=== PATIENT | male | born 1985 ===

== ENCOUNTER → 2016-12-22 | Outpatient (CLI) | payer MEDICAID ==
--- NOTE | 2016-12-22 10:18 | NOWCEV ---
[facility] EVALUATION AND LETTER OF JUSTIFICATION Patient Name: ABRAHAN OSBORNE JR Physician: DO Yin Blandon Date: 12/22/16 Therapist: Dilma Cavazos PT,MSPT Date of : 1985 MR#: [id number] Contact: Subscriber: ABRAHAN OSBORNE JR Primary Ins: [employer] Subscriber #: [id number] EVALUATION FINDINGS Medical history - Abrahan is a 31y/o male who was dx with multiple sclerosis (MS) in 2006. He has been wheelchair bound for about 9 years, using a standard MWC. His current wheelchair is not meeint his needs for mobility both within his home and in the community. Abrahan was referred to this clinic by his doctor to have recommendation made for the most appropriate PWC and MWC to meet his needs in both his home and in the community. Functional Mobility - Abrahan cannot ambulate, even with an AD. He has been wheel chair bound for the past 9 years. He utilizes his chair for all community mobility and some distances within his home. In his home, he frequently crawls to access different areas, and bumps in a seated position on the stairs utilizing his UEs for mobility. He is able to stand with B UE support on a counter for several seconds prior to LOB and having to sit. He reports he very sporadically has the strength to walk with support of furniture in his home, but this only occurs every several months. Abrahan performs squat pivot transfers to/from his MWC independently with significant use of his UEs to complete transition. He requires assistance to manage his LEs with sit to supine transitions and utilizes an UE momentum strategy to roll L and R. He uses his UEs to move his LEs for all mobility. Head/Trunk control - Abrahan has poor trunk control. When sitting unsupported he utilizes an anterior prop position to control his balance. He is unable to sit without UE support and cannot correct a LOB without his UEs. Motor involvement - Abrahan's LEs are more greatly impacted by his MS that his UEs. Abrahan experiences significant fatigueable weakness causing his strength to fluctuates with levels of fatigues and exertion. MMT on his date is as follows : DF, eversion, inversion B: 0/5, knee extension B: 2+/5, hip flexion B: 2-/5, hip abduction B: 1/5, shoulder flexion and abduction: 4-/5, elbow flexion B: 4+/ 5, elbow extension L: 4-/5, R 4/5. Abrahan has extensor tone in his LEs. He demonstrates 1+ to 2 on the modified Norma scale in his quadriceps and 1+ in his gluteals. He has multi-beat clonus at B ankles. He reports that his legs will intermittently move into an extensor pattern which he is unable to control. He has tightness in B hamstrings. Posture - Abrahan sits with a significant posterior pelvic tilt. His L shoulder is elevated and his R iliac crest is higher than his L. He has a L scoliotic convexity. In his current standard MWC, Abrahan sit with his trunk leaning to the L with his L UE supporting his trunk on the arm rest. Skin/Sensation - Abrahan has a history of skin breakdown on B ischial tuberosities (ITs). He currently has stage 2 pressure ulcers on B ITs, despite frequent weight shifting for pressure relief. Abrahan is incontinent of bladder. Endurance - Abrahan's endurance is significantly limited by his MS. He reports that he spends the majority of his day on the couch, as he fatigues with all activity if not using his wheelchair. His fluctuating level of fatigue causes him to require varying levels of assistance to perform ADLs. His endurance significantly limits his ability to access the community, as he is unable to self propel his current standard MWC over uneven surfaces or community distances without fatigue and requiring assistance. ADLs - Abrahan requires assistance from his mother to complete activities such as tying his shoes, and he utilizes assistance as needed for bathing and dressing. He currently relies on his mother for meal prep and light housework as the home he currently lives in is not wheelchair accessible. Cognitive/Social - Abrahan is fully cognizant. Abrahan lives with his mother who is his primary caregiver in a multi-level home with 2 NICK. Abrahan is currently on a waiting list for handicap accessible housing. Once he moves into accessible housing, Abrahan will be able to easily utilize a MWC within the home and perform MRADLs with greater independence from a wheelchair level. To access the community, Abrahan has been utilizing a standard weight MWC. He has difficulty self propelling up hills/ramps and negotiating on unlevel surfaces. He reports his arms go numb when self propelling longer distances and he has been picked up by EMS on several occasions when he fatigued prior to getting to his destination, as the [email or web address] public transit bus is 2[place]3miles from his home. He also relies on his mother to drive him into the community, where his MWC is placed in the car. He self propels once at the destination but requires intermittent assistance for unlevel surfaces due to the weight and poor fit of his chair. Current wheelchair - Abrahan currently utilizes a standard MWC for some household and all community mobility. The chair was purchased at a [employer] sale and is too wide which makes is difficult for Abrahan to reach his wheels. The seating system does not support his posture or assist with his poor trunk control causing him to lean strongly to the L. Additionally, Abrahan's current seat does not provide adequate pressure relief, and he has active pressure ulcers. The weight of Abrahan's current chair is also an concern, as he cannot self propel up hills/ramps or any distances without fatiguing and exacerbating his MS symptoms. MEDICAL and FUNCTIONAL NEED/OBJECTIVES * To procure a custom seating system to provide Abrahan with postural support and control to decrease skin breakdown, promote skin healing and to maximize his postural endurance /function in the home and community. * To procure a PWC to provide Abrahan with safe and consistent access to the community without exacerbating his MS. * To procure an ultra light weight MWC to provide Abrahan with access to his home and shorter distances in the community. EQUIPMENT RECOMMENDATIONS AND JUSTIFICATIONS The following recommendations are believed to be the most cost effective way to meet the patients medical and functional needs. PWC * Group 3 power base: Needed to provide bArahan with safe and consistent access to the community without putting him at risk for exacerbating his MS or becoming stranded. This is necessary because Abrahan cannot ambulate, even with an AD. He cannot propel even a light weight MWC the distances required to access public transit and the grocery store. In the past attempting to self propel these distances has caused exacerbation of MS symptoms where EMS was called to assist patient back home. A PWC will allow Abrahan to independently participate in his community without placing him at risk for medical complications/exacerbation of his MS. Abrahan is able to safely and independently perform squat pivot transfer to/from his wheelchair. * Power tilt-in- space: Needed to allow Abrahan to perform regular pressure relief in order to promote healing of his ischial pressure ulcers. This is necessary has Abrahan's ability to weight shift and pressure relief fluctuates with his fatigue level. Additionally, the tilt will allow Abrahan to rest in his chair and conserve energy in order to increase his community participation without exacerbating his MS, or having to return home to lay down due to fatigue. * Skin protection positioning cushion: Needed to provide Abrahan with appropriate pressure relief to promote healing of his current pressure sores and to promote skin health. Also required to provide a stable base for Abrahan's pelvis in order to promote upright posture, balance, and trunk control to optimize Abrahan's ability to perform functional tasks from a wheelchair level. * Deep contour posterior-lateral positioning backrest: Needed to maximize Abrahan' s posture and balance in order to improve sitting tolerance and function, as Abrahan has poor trunk control. Additionally it will work in conjunction with Abrahan 's seat cushion to enhance pressure distribution to promote wound healing and skin health. * Headrest with removable hardware: Needed to support Abrahan's head when he is utilizing the [id number] function on his chair, as well as to help him conserve energy when sitting upright. The removable mount is necessary so head rest can be removed for assisted ADLs and self care tasks. * Height adjustable flip back arm rests: Needed to provide Abrahan with UE support to help conserve energy when in his chair. The increased height is needed to meet his arm length. Flip back is required so the arm rest do not interfere with transfers. * Center mount flip up foot platform: Needed to provide Abrahan with LE support in order to maintain his pelvic position to maximize his posture and minimize skin breakdown from sliding forward. This is necessary as Abrahan has minimal volitional movement in his LEs. The center mount is necessary as it will be easier for Abrahan to move it out of the way so it does not interfere with transfers. * Upgraded electronics: Needed to allow Abrahan to drive and to control the power seating functions on the chair. * Harness for upgraded electronics: Needed to allow for use of multiple power seating functions, and to help program upgraded electronics. * High speed motor package: Necessary as Abrahan will be utilizing his chair for community mobility. The high speed package will allow Abrahan to safely cross busy intersections. Additionally it will allow him to efficiently get to his destination and minimize his exposure to the elements, such as heat which exacerbates his MS. * Swing away joystick mount: Needed to allow joystick to be positioned so it does not interfere with transfers. * Pelvic positioning belt: Needed to stabilize Abrahan's pelvis to prevent sheering forces from occurring which would place him at risk for further skin breakdown. Needed to provide Abrahan with safety with driving his chair. * Batteries: Needed to provide the chair with power to allow Abrahan to drive and utilize the electronic seat functions. MWC * Ultra light weight folding frame MWC: Needed to provide Abrahan with access to MRADLs in his home, as well as shorter distances in the community, and when accessing the community by car. Abrahan will be moving to handicap accessible housing where he will be using his chair to access all MRADLs including the bathroom and kitchen. When Abrahan accesses the community by car, it is necessary that he has a chair that can be easily lifted in/out of the vehicle. An ultra light weight chair is necessary as Abrahan cannot independently propel a heavier chair up ramps on on uneven surfaces due to decreased strength and fatigue from his MS. An ultra light weight MWC will allow Abrahan to conserve energy with daily propulsion both in and out of the home allowing for greater participation in MRADLs and community level activities without assistance from his caregiver. Abrahan cannot ambulate, even with an AD. A heavier chair would not be appropriate as Abrahan is unable to self propel a heavier chair on ramps or unlevel surfaces and would cause increased fatigue leading to more time spent out of his chair resting. Abrahan is able to safely and independently perform squat pivot transfers to/from his wheelchair. * Skin protection positioning cushion: Needed to provide Abrahan with appropriate pressure relief to promote healing of his current pressure sores and promote skin health. Also required to provide a stable base for Abrahan's pelvis in order to promote upright posture, balance, and trunk control to optimize Abrahan's ability to self propel and perform functional tasks from a wheelchair level. * Deep contour posterior positioning backrest: Needed to maximize Abrahan's posture and balance in order to improve sitting tolerance, self propulsion and function, as Abrahan has poor trunk control. Additionally it will work in conjunction with Abrahan's seat cushion to enhance pressure distribution to promote wound healing and skin health. * Anti-tippers: Needed to prevent Abrahan's chair from tipping over backward when propelling up ramps or unlevel surfaces, or when experiencing extensor spasms. * Heel loops: Needed to maintain the positioning of Abrahan's feet on his foot plates. * Swing away height adjustable arm rests: Needed to provide Abrahan with UE support to help conserve energy when in his chair. Swing away is required so arm rest do not interfere with transfers. * Side guards: Needed to prevent Abrahan's clothing from becoming caught in wheels and interfering with propulsion. * Flat free inserts: Needed to minimize maintenance * Wheel lock extensions: Needed to allow Abrahan to reach his brake levers without having to lean forward or reach, which is necessary due to Abrahan's poor trunk control. * Pelvic positioning belt: Needed to stabilize Abrahan's pelvis to prevent sheering forces from occurring which would place him at risk for skin breakdown , and to help manage extensor spasm. Needed to provide Abrahan with safety when propelling his chair. These recommendations are based on the likelihood that Abrahan will require the use of a wheelchair for mobility for the rest of his life. If you have any questions or concerns regarding the stated recommendations, please feel free to contact the therapist at . Thank you for your cooperation in obtaining the necessary equipment for this patient. Dilma Cavazos, PT MTDD
== END ==
PROVIDERS: ATTEND Family Medicine
DX: G35 Multiple sclerosis (principal); Z99.3 Dependence on wheelchair
CPT/HCPCS: 97162-GP